=== PATIENT | female | born 1980 | race Caucasian/White ===

== ENCOUNTER → 2019-10-26 | Outpatient (CLI) | payer OTHER ==
[~2019-10-26] MED LIST: BARIUM for suspension 96% w/w (Vanilla Silq Medium Density) PO ONE; BARIUM for suspension 98% w/w (Vanilla Silq High Density) PO ONE
--- NOTE | 2019-10-26 11:49 | Diagnostic Imaging Report ---
INDICATION: Reflux. TECHNIQUE: Patient ingested effervescent crystals as well as thin and thick barium and imaging over the esophagus, stomach, and proximal small bowel was performed at multiple obliquities. 48 seconds of fluoroscopic time was utilized. FINDINGS: Preliminary radiograph is unremarkable. The esophagus has a smooth contour. No mass or stricture is identified. No hiatal hernia or gastroesophageal reflux was demonstrated. Stomach has normal configuration. Duodenal bulb is without deformity. IMPRESSION: Unremarkable upper GI. Dictated by: Dictated on workstation # [id number]
== END ==
LOC: RAD 09:29
PROVIDERS: ATTEND Surgery
DX: K21.9 Gastro-esophageal reflux disease without esophagitis (principal)
CPT/HCPCS: 74246

== ENCOUNTER 2020-02-15 09:31 | Outpatient (RCR) | payer OTHER ==
[~2020-02-15] VITALS: Ht 165 cm; Wt 123.0 kg
[~2020-02-15 09:31] MED LIST changes: +ATEN50TA PO; -BARIUM for suspension 96% w/w (Vanilla Silq Medium Density) PO ONE; -BARIUM for suspension 98% w/w (Vanilla Silq High Density) PO ONE; +BUPR300T98 PO; +CETI10TA21 PO; +FLUO20CA42 PO; +IBUP-1780 PO; +METF-761 PO
== END 2020-02-15 15:03 | disposition home or self-care (01) ==
LOC: PREOP 09:31
PROVIDERS: ATTEND Surgery
DX: Z01.818 Encounter for other preprocedural examination (principal); Z01.812 Encounter for preprocedural laboratory examination; E66.01 Morbid (severe) obesity due to excess calories
CPT/HCPCS: 87635

== ENCOUNTER 2020-02-18 08:45 | Day surgery (SDC) | payer OTHER ==
[~2020-02-18] VITALS: Ht 165 cm; Wt 123.0 kg
[2020-02-18] VITALS (10 sets, daily range): BP systolic 106–177; BP diastolic 64–95
--- OUTSIDE RECORDS SUMMARY | 2020-02-18 09:13 | XMS REPORT | Continuity of Care Document ---
Author Organization Unknown Address Unknown Phone Unavailable Allergies Active Description Code Type Severity Reaction Onset Reported/Identified Relationship to Patient Clinical Status Yes No Allergy Information Available [id number] Drug Allergy Unknown N/A 020 Yes No Known Drug Allergies [id number] Drug Allergy Unknown N/A 02/10/2020 Medications There is no data. Problems Date Dx Coded Attending Type Code Diagnosis Diagnosed By 08/29/1502 RICKEY PARKER MD, Ot E66.01 MORBID (SEVERE) OBESITY DUE TO EXCESS CA 08/29/1502 RICKEY PARKER MD Ot Z01.81 2 ENCOUNTER FOR PREPROCEDURAL LABORATORY E 08/29/1502 RICKEY PARKER MD Ot Z01.81 8 ENCOUNTER FOR OTHER PREPROCEDURAL EXAMIN 10/27/2019 RICKEY PARKER MD Ot K21.9 GASTRO-ESOPHAGEAL REFLUX DISEASE WITHOUT 11/27/2019 RICKEY PARKER MD, Ot K21.9 GASTRO-ESOPHAGEAL REFLUX DISEASE WITHOUT 11/27/2019 W E11.65 Typ e 2 diabetes mellitus with hyperglycemia Nathalie Guevara 11/27/2019 W I10 Essent ial (primary) hypertension Nathalie Guevara 01/01/2020 W F32.1 Sridevi r depressive disorder, single episode, moderate Alisa Andrew 01/01/2020 W F41.1 Gene ralized anxiety disorder Alisa Andrew 01/04/2020 W F32.1 Sridevi r depressive disorder, single episode, moderate Alisa Andrew 01/04/2020 W F41.1 Gene ralized anxiety disorder Alisa Andrew Procedures There is no data. Results Test Result Range Coronavirus SARS-CoV-2 SO 2018 - 0 14:15 Coronavirus Ab [Units/volume] in Serum Negative Negative Encounters ACCT No. Visit Date/Time Discharge Status Pt. Type Provider Facility Loc./Unit Complaint [id number] 08/25/2019 11:23:07 08/25/2019 23:59:5 9 CLS Outpatient [id number] 02/15/2020 09:31:00 020 15:03:00 DIS Outpatient RICKEY PARKER MD [facility] PREOP MORBID OBESITY [id number] 10/26/2019 09:29:00 020 23:59:59 CLS Outpatient RICKEY PARKER MD [facility] RAD REFLUX [id number] 02/18/2020 09:30:00 P EN Preadmit RICKEY PARKER MD [facility] [place] [facility] MORBID OBESITY
[2020-02-18] MEDS ORDERED: ONDANSETRON 4 MG/2 ML (SDV) Z0FRAN IV ONE (09:15)
[2020-02-18] MEDS ORDERED: FAMOTIDINE 20MG/2ML IV (PEPCID) IV ONE (09:15)
[2020-02-18] MEDS: LACTATED RINGERS 1,000 ML IV PRN ×2 (09:28→13:00)
[2020-02-18] MEDS ORDERED: ceFAZolin 2 GM IV Premixed 50 ML IV ONE (09:30)
[2020-02-18 09:37] LABS: BASOPHILS % (AUTO) 0 % (0-10); EOSINOPHILS % (AUTO) 0 % (0-10); HEMATOCRIT 37 % (35-52); HEMOGLOBIN 12.4 G/DL (11.5-16.0); LYMPHOCYTES # (AUTO) 1.8 X 10^3 (1.0-4.0); LYMPHOCYTES % (AUTO) 23 % (12-44); MEAN CORPUSCULAR HEMOGLOBIN 30 PG (25-34); MEAN CORPUSCULAR HGB CONC 34 G/DL (32-36); MEAN CORPUSCULAR VOLUME 89 FL (80-99); MONOCYTES # (AUTO) 0.4 X 10^3 (0.0-1.0); MONOCYTES % (AUTO) 5 % (0-12); NEUTROPHILS # (AUTO) 5.6 X 10^3 (1.8-7.8); NEUTROPHILS % (AUTO) 71 % (42-75); PLATELET COUNT 353 10^3/uL (130-400); RED CELL DISTRIBUTION WIDTH 13.1 % (10.0-14.5); WHITE BLOOD COUNT 7.9 10^3/uL (4.3-11.0)
--- NOTE | 2020-02-18 09:41 | Progress Note-Pre Operative ---
Pre-Operative Progress Note H&P Reviewed The H&P was reviewed, patient examined and no changes noted. Date Seen by Provider: February 18, 2020 Time Seen by Provider: 09:40 Date H&P Reviewed: February 18, 2020 Time H&P Reviewed: 09:35 Pre-Operative Diagnosis: Morbid obesity, HTN, DMII, LUIS MIGUEL DEMAR BLANDON APRN February 18, 2020 09:41
--- NOTE | 2020-02-18 09:42 | Discharge Inst-Surgical ---
D/C Lap Instructions-CIERAO Reconcile Patient Problems Problems Reviewed?: Yes New, Converted, or Re-Newed RX: Other Follow Up Appt in 2 weeks Activity as tolerated No driving for 24 hours No driving while on pain medications Incentive Spirometry use every 2 hours while awake Regular Diet Symptoms to Report: Fever over 101 degree F, Nausea/Vomiting Infection Signs and Symptoms to report: Increased redness, Foul odor of wound, Increased drainage Bathing instructions: May shower Operative Area Clean/Dry; Keep incision clean/dry If any problems/questions: Contact your physician or go to Emergency Room DEMAR BLANDON APRN February 18, 2020 09:42
[2020-02-18] MEDS ORDERED: CATHETER FLUSH 10 ML SYR IV PRN (09:45)
[2020-02-18] MEDS ORDERED: BUP/EPI 0.5% 1:200,000 (SENSORCAINE) 30 ML VIAL ONE (10:59)
[2020-02-18] MEDS ORDERED: ONDANSETRON 4 MG/2 ML (SDV) Z0FRAN ONE (11:37)
[2020-02-18] MEDS ORDERED: DEXAMETHASONE 10 MG/ML (DECADRON) 1 ML VIAL ONE (11:37)
[2020-02-18] MEDS ORDERED: proPOfol 200 MG/20 ML (DIPRIVAN) VIAL IV ONE (11:37)
[2020-02-18] MEDS ORDERED: SEVOFLURANE (ULTANE) 15 ML INHAL SOLN ONE ×2 (11:37→13:37)
[2020-02-18] MEDS ORDERED: fentaNYL INJECTION 100 MCG/2 ML AMP ONE ×2 (11:37→14:07)
[2020-02-18] MEDS ORDERED: ROCURONIUM 10 MG/ML 5 ML SYRINGE IV ONE (11:37)
[2020-02-18] MEDS ORDERED: MIDAZOLAM 2 MG/2 ML (VERSED) VIAL ONE (11:37)
[2020-02-18] MEDS ORDERED: NS IV 1000 ML 1,000 ML IV SCH (12:47)
[2020-02-18] MEDS ORDERED: diphenhydrAMINE 50 MG/ML INJ (BENADRYL) IVP PRN (13:00)
[2020-02-18] MEDS ORDERED: fentaNYL INJECTION 1,000 MCG in NS (IVPB) 80 ML IV SCH (13:00)
[2020-02-18] MEDS ORDERED: ONDANSETRON 4 MG/2 ML (SDV) Z0FRAN IV PRN (13:00)
[2020-02-18] MEDS ORDERED: oxyCODONE 5 MG/5 ML ORAL SOLN (roxiCODONE) 5 ML UDC PO PRN (13:00)
[2020-02-18] MEDS ORDERED: RT-ALBUTEROL SULF 2.5 MG/3 ML PRE-MIX VIAL INH SCH (13:00)
[2020-02-18] MEDS ORDERED: METOCLOPRAMIDE INJ 10 MG/2 ML (REGLAN) IV PRN (13:00)
[2020-02-18] MEDS ORDERED: NALOXONE 0.4 MG/ML 1 ML (NARCAN) VIAL IV PRN (13:00)
[2020-02-18] MEDS ORDERED: diphenhydrAMINE 50 MG/ML INJ (BENADRYL) IV PRN (13:00)
[2020-02-18] MEDS ORDERED: ATROPINE 1.2 MG/3 ML (0.4 MG/ML) SYR ONE (13:06)
[2020-02-18] MEDS ORDERED: NEOSTIGMINE 3 MG/3 ML VIAL ONE (13:27)
[2020-02-18] MEDS ORDERED: GLYCOPYRROLATE 0.2 MG/ML (ROBINUL) 2 ML VIAL ONE (13:27)
[2020-02-18] MEDS ORDERED: morphine INJ 10 MG/ML 1ML (SYR OR VIAL) ONE (13:54)
[2020-02-18] MEDS ORDERED: fentaNYL INJECTION 100 MCG/2 ML AMP IVP ONE ×2 (14:00)
[2020-02-18] MEDS ORDERED: morphine INJ 10 MG/ML 1ML (SYR OR VIAL) IVP ONE ×2 (14:00)
[2020-02-18] MEDS ORDERED: ONDANSETRON 4 MG/2 ML (SDV) Z0FRAN IVP PRN ×2 (14:00)
[2020-02-18] MEDS ORDERED: MEPERIDINE (DEMEROL) INJ 50 MG/ML IVP ONE ×2 (14:00)
--- NOTE | 2020-02-18 14:06 | Progress Note-Post Operative ---
Post-Operative Progess Note Surgeon (s)/Store Operations Specialist (s) Surgeon Dr. Armen Wilkes M.D. Store Operations Specialist: Roberto Blandon BUMP GRADER OPERATOR Pre-Operative Diagnosis Morbid obesity, HTN, DMII, LUIS MIGUEL Post-Operative Diagnosis Morbid obesity, HTN, DMII, LUIS MIGUEL Procedure & Operative Findings Date of Procedure 02/18/20 Procedure Performed/Findings Laparoscopic gastric sleeve resection Anesthesia Type GET Estimated Blood Loss Estimated blood loss (mL): minimal Specimens/Packing Specimens Removed 1) Stomach ROBERTO BLANDON BUMP GRADER OPERATOR February 18, 2020 14:06
--- NOTE | 2020-02-18 14:11 | Progress Note-Post Operative ---
Post-Operative Progess Note Surgeon (s)/Clarifier Operator (s) Surgeon RICKEY PARKER MD Clarifier Operator: Roberto Yeboah DIVING INSTRUCTOR Pre-Operative Diagnosis Morbid obesity, HTN, DMII, LUIS MIGUEL Post-Operative Diagnosis same Procedure & Operative Findings Date of Procedure 02/18/20 Procedure Performed/Findings laparoscopic gastric sleeve resection. Anesthesia Type get Estimated Blood Loss Estimated blood loss (mL): minimal Specimens/Packing Specimens Removed stomach RICKEY PARKER MD February 18, 2020 14:11
[2020-02-18] MEDS: LACTATED RINGERS 1,000 ML IV SCH ×3 (15:32→20:57)
[2020-02-18] MEDS: metroNIDAZOLE 500MG/100ML IVPB 100 ML IV SCH ×2 (16:08→23:15)
--- NOTE | 2020-02-18 16:14 | NUR ---
PALMA FAN admitted to room 422-1, post op gastric sleeve procedure, on 02/18/20 accompanied by staff .PALMA FAN introduced to surroundings, call light, bed controls, phone, TV, temperature control, lights, meal times, smoking policy, visitor policy, side rail policy, bathrooms and showers. Patient Rights given to patient in the handbook. PALMA FAN verbalizes understanding that [facility] is not responsible for the loss or damage to any personal effects or valuables that are kept in the patients posession during their hospitalization. The following Patient Care Plans and discharge were discussed with the patient. PALMA FAN verbalizes understanding of Interdisciplinary Patient Education. Patient was informed about the Rapid Response Team and its purpose.
--- NOTE | 2020-02-18 18:28 | OPERATIVE REPORT ---
DATE OF SERVICE: 02/18/2020 ATTENDING PRIMARY CARE PHYSICIAN: PREOPERATIVE DIAGNOSES: Morbid obesity, diabetes, hypertension, sleep apnea. POSTOPERATIVE DIAGNOSES: Morbid obesity, diabetes, hypertension, sleep apnea. PROCEDURE: Laparoscopic gastric sleeve resection. SURGEON: Rickey Parker MD ELECTRICIAN SUBSTATION: Roberto Yeboah APRN ANESTHESIA: General endotracheal. ESTIMATED BLOOD LOSS: Minimal. FINDINGS: Hepatomegaly, liver steatosis as well as early signs of liver cirrhosis. No hiatal hernia. DISPOSITION: The patient tolerated the procedure well. INDICATIONS: The patient is a 39-year-old female in our surgical weight loss program for the laparoscopic gastric sleeve resection and meets the medical criteria for bariatric surgery. She began to gain the majority of her adult weight 22 years ago after the of her first child. She has tried multiple diet and exercise attempts with no success. She has tried diet programs including , Weight Watchers, vegan diet, SlimFast, [place] Atkins, ketogenic, and has had some mild success over the years; however, would regain the weight back. She has also tried exercise regimens including walking. She would also do 5 km runs and has tried medications including phentermine and Topamax and would have some success; however, would regain the weight back. Her medical comorbidities related to her obesity include obstructive sleep apnea, hypertension, diabetes, anxiety, depression, gastroesophageal reflux disease, hypercholesterolemia. DESCRIPTION OF PROCEDURE: The patient was brought to the operating room and supine on the table. After adequate IV pain and sedative medications and general endotracheal intubation, the abdomen was prepped and draped in standard surgical fashion. A 0.5% Marcaine with epinephrine was used to anesthetize the overlying skin in left upper abdominal quadrant and transverse skin incision made using a 15 blade. An 0 silk suture was applied to the medial aspect of the incision for retraction and a Veress needle inserted with a low opening pressure of 0 mmHg and the abdomen was then insufflated to 15 mmHg pressure. The Veress needle removed and a 5 mm XL trocar placed followed by a 5 mm 45-degree angle laparoscope visualizing the peritoneal cavity. A 4-quadrant abdominal exploration was performed. There was liver steatosis, hepatomegaly as well as early cirrhotic changes. There was a surgically absent gallbladder. There was no hiatal hernia identified. Under direct visualization, we then proceeded to place a midabdominal left midline 10 mm port after the skin and peritoneal lining were anesthetized using 0.5% Marcaine with epinephrine and a transverse skin incision made using 15 blade. In a similar manner, a midabdominal right of midline 15 mm port was placed followed by a right upper abdominal quadrant 5 mm port. The epigastric region was then anesthetized and a transverse skin incision made using 11 blade. A tract was then created through the abdominal wall layers using a trocar to a 5 mm port and through this opening, a medium size Nathansen liver retractor was placed and the left lobe of the liver retracted anteriorly and superiorly. The patient was then placed in steep reverse Trendelenburg position. We then measured the stomach from the pylorus, cephalad along the greater curvature and marked this with a marking pen. The gastrocolic ligament next to the stomach was then opened using a Sonicision entering the lesser sac. We then proceeded with inferior dissection until we were approximately 2 cm below our marking. We then proceeded cephalad taking the short gastric vessels as well as angle of His connective tissue fibers as well as the posterior stomach behind this identifying the left ranulfo of the diaphragm. Good hemostasis was observed. The ViSiGi 36-Bulgarian gastric tube was then placed into the stomach and then directed into the pylorus. This was then placed on suction and used as a stapled guide for gastric sleeve resection. We first started with a 45 polyglycolic acid black load followed by a 60 mm black load followed by two 60 mm purple loads and a 45 mm purple load to finish our gastric sleeve resection leaving 2 cm next to the gastroesophageal junction with visualization of good hemostasis. The staple line corners were then clipped with 5 mm clips. A leak test was then performed to 30 mmHg pressure with no leak identified. Tisseel fibrin glue was then placed into the staple line and the omentum placed on the staple line. The stomach was removed through the 15 mm port site and the fascia and peritoneum to the 10 to 15 mm port sites were then closed under direct visualization using a Nasir-Rosanna device and 0 Vicryl suture. The abdomen was desufflated and remaining ports removed. All skin incisions were closed using 4-0 Monocryl running subcuticular sutures. Wounds were then cleaned and covered with Dermabond. The patient tolerated the procedure well. We will admit her 23-hour observation, start with pain control with a SWEEP PRESS OPERATOR pump with fentanyl and DVT prophylaxis with early ambulation, calf SCDs as well as Lovenox injections. We will also continue antibiotics for 24 hours and start a phase 1 clear liquid diet in the morning and when she is tolerating 60 mL every half hour, has adequate pain control with oral pain medication and is ambulating well, we will discharge her home. She will be instructed to follow a phase 1 clear liquid diet for the next 2 weeks. Job ID: [id number] DocumentID: [id number] Dictated Date: 02/18/2020 13:45:09 Project Manager/Design Manager Date: 02/18/2020 18:27:32 Dictated By: RICKEY PARKER MD
[2020-02-18] MEDS: RT-ALBUTEROL SULF 2.5 MG/3 ML PRE-MIX VIAL INH SCH ×2 (18:42→22:14)
[2020-02-18] MEDS: ceFAZolin 2 GM IV Premixed 50 ML IV SCH (20:57)
[2020-02-18] MEDS: ENOXAPARIN 40 MG/0.4 ML (LOVENOX) SYR SC SCH (20:57)
[2020-02-19] VITALS: BP 14/84
[2020-02-19] MEDS ORDERED: ONDANSETRON 4 MG/2 ML (SDV) Z0FRAN ONE ×2 (00:44→06:16)
[2020-02-19] MEDS: ONDANSETRON 4 MG/2 ML (SDV) Z0FRAN IVP PRN ×3 (00:53→12:34)
[2020-02-19 04:00] VITALS: BP 150/84
[2020-02-19] MEDS: ceFAZolin 2 GM IV Premixed 50 ML IV SCH ×2 (04:16→12:35)
[2020-02-19] MEDS: LACTATED RINGERS 1,000 ML IV SCH (05:23)
[2020-02-19] MEDS: metroNIDAZOLE 500MG/100ML IVPB 100 ML IV SCH (06:32)
[2020-02-19 07:00] LABS: HEMOGLOBIN 13.1 G/DL (11.5-16.0); MEAN PLATELET VOLUME 11.3 FL (7.4-10.4); RED CELL DISTRIBUTION WIDTH 13.3 % (10.0-14.5); WHITE BLOOD COUNT 14.2 10^3/uL (4.3-11.0)
[2020-02-19] MEDS: RT-ALBUTEROL SULF 2.5 MG/3 ML PRE-MIX VIAL INH SCH ×3 (07:00→14:45)
[2020-02-19 07:19] LABS: CHLORIDE 99 MMOL/L (98-107); POTASSIUM 3.7 MMOL/L (3.6-5.0)
[2020-02-19 07:20] LABS: SODIUM 136 MMOL/L (135-145)
[2020-02-19 07:21] LABS: CALCIUM 9.4 MG/DL (8.5-10.1); GLUCOSE 113 MG/DL (70-105)
[2020-02-19 07:23] LABS: CARBON DIOXIDE 24 MMOL/L (21-32)
[2020-02-19 07:25] LABS: CREATININE SERUM 0.75 MG/DL (0.60-1.30); GFR ESTIMATED > 60
[2020-02-19 07:26] LABS: BUN/CREATININE RATIO 9
[2020-02-19] MEDS: ENOXAPARIN 40 MG/0.4 ML (LOVENOX) SYR SC SCH (08:05)
[2020-02-19 08:15] VITALS: BP 139/78
[2020-02-19] MEDS ORDERED: PANTOPRAZOLE 40 MG (PROTONIX) VIAL IV SCH (09:00)
[2020-02-19] MEDS ORDERED: SENNA W/DOCUSATE (SENOKOT S) TABLET PO SCH (09:00)
--- NOTE | 2020-02-19 10:12 | Progress Note ---
Subjective Date Seen by a Provider: February 19, 2020 Time Seen by a Provider: 10:00 Subjective/Events-last exam doing ok. slowly tolerating phase 1 clears. pain controlled. no fever/chills. no SOB. Objective Exam Vital Signs Date Time Temp Pulse Resp B/P (MAP) Pulse Ox O2 Delivery O2 Flow Rate FiO2 02/19/20 08:45 Room Air 02/19/20 08:15 35.9 64 16 139/78 (98) 96 Nasal Cannula 3.00 02/19/20 07:00 95 Room Air 02/19/20 07:00 14 02/19/20 04:00 37.3 86 21 150/84 (106) 95 Nasal Cannula 3.00 02/19/20 03:03 96 Nasal Cannula 3.00 02/19/20 00:00 36.0 85 20 14/84 (61) 97 Nasal Cannula 3.00 02/18/20 21:00 Nasal Cannula 3.00 02/18/20 21:00 16 02/18/20 19:39 35.8 63 16 162/90 (114) 96 Nasal Cannula 3.00 02/18/20 18:42 97 Nasal Cannula 3.00 02/18/20 15:00 36.3 75 18 166/95 (118) 95 Venturi Mask 3.00 02/18/20 15:00 Nasal Cannula 3.00 02/18/20 14:45 36.6 23 177/90 (119) 95 OxyMask 3 02/18/20 14:45 OxyMask 3 02/18/20 14:40 25 174/91 (118) 95 OxyMask 3 02/18/20 14:30 22 174/93 (120) 95 OxyMask 3 02/18/20 14:30 3 02/18/20 14:20 24 166/88 (114) 97 OxyMask 6 02/18/20 14:15 12 02/18/20 14:10 23 154/77 (102) 98 OxyMask 12 02/18/20 14:00 12 02/18/20 14:00 27 106/89 (95) 89 OxyMask 10 02/18/20 13:54 12 02/18/20 13:54 36.6 16 142/81 (101) 93 OxyMask 12 I & O 02/19/20 07:00 Intake Total 1050 ml Output Total 3025 ml Balance -1975 ml Capillary Refill : Less Than 3 SecondsLess Than 3 Seconds General Appearance: No Apparent Distress HEENT: PERRL/EOMI Neck: Full Range of Motion Respiratory: Chest Non Tender, Lungs Clear, Decreased Breath Sounds Cardiovascular: Regular Rate, Rhythm Gastrointestinal: normal bowel sounds, soft, tenderness Extremity: Normal Capillary Refill Neurologic/Psychiatric: Alert, Oriented x3 Skin: Normal Color Lymphatic: No Adenopathy Results Lab Laboratory Tests 02/18/20 12:34: Glucometer 105 02/18/20 16:21: Glucometer 163H 02/18/20 19:22: Glucometer 163H 02/19/20 00:41: Glucometer 147H 02/19/20 05:08: Glucometer 139H 02/19/20 06:21: White Blood Count 14.2H, Red Blood Count 4.38, Hemoglobin 13.1, Hematocrit 39, Mean Corpuscular Volume 89, Mean Corpuscular Hemoglobin 30, Mean Corpuscular Hemoglobin Concent 34, Red Cell Distribution Width 13.3, Platelet Count 404H, Mean Platelet Volume 11.3H, Sodium Level 136, Potassium Level 3.7, Chloride Level 99, Carbon Dioxide Level 24, Anion Gap 13, Blood Urea Nitrogen 7, Creatinine 0.75, Estimat Glomerular Filtration Rate > 60, BUN/Creatinine Ratio 9, Glucose Level 113H, Calcium Level 9.4 02/19/20 08:57: Glucometer 111H Microbiology 02/18/20 MRSA Screen - Final, Complete MRSA not isolated Assessment/Plan Assessment/Plan Assess & Plan/Chief Complaint s/p lap sleeve gastrectomy. increase ambulation. encourage phase 1 clear liquid diet. when tolerating 60ml/30min clears, good pain control and ambulating well will d/c home. Clinical Quality Measures DVT/VTE Risk/Contraindication: Risk Factor Score Per Nursin RFS Level Per Nursing on Admit: 4+=Very High RICKEY PARKER MD February 19, 2020 10:12
[2020-02-19 12:01] VITALS: BP 148/81
[2020-02-19] MEDS ORDERED: METOCLOPRAMIDE INJ 10 MG/2 ML (REGLAN) IVP PRN (13:00)
--- NOTE | 2020-02-19 13:02 | Anesthesia-General Post-Op ---
General Patient Condition Mental Status/LOC: Same as Preop Cardiovascular: Satisfactory Nausea/Vomiting: Absent Respiratory: Satisfactory Pain: Controlled Complications: Absent Post Op Complications Complications None Follow Up Care/Instructions Patient Instructions None needed. Anesthesia/Patient Condition Patient Condition Patient is doing well, no complaints, stable vital signs, no apparent adverse anesthesia problems. No complications reported per nursing. ANGELICA MARIN CRNA February 19, 2020 13:02
== END 2020-02-19 16:03 | disposition home or self-care (01) ==
LOC: SDC 08:45 → 4TH 14:56 → SDC 02-19 16:03
PROVIDERS: ATTEND Surgery
DX: E66.01 Morbid (severe) obesity due to excess calories (principal); E11.9 Type 2 diabetes mellitus without complications; I10 Essential (primary) hypertension; K21.9 Gastro-esophageal reflux disease without esophagitis; E78.00 Pure hypercholesterolemia, unspecified; G47.33 Obstructive sleep apnea (adult) (pediatric); J30.9 Allergic rhinitis, unspecified; F32.9 Major depressive disorder, single episode, unspecified; F41.9 Anxiety disorder, unspecified; Z68.42 Body mass index [BMI] 45.0-49.9, adult; Z79.84 Long term (current) use of oral hypoglycemic drugs; Z79.899 Other long term (current) drug therapy; Z99.89 Dependence on other enabling machines and devices; Z90.89 Acquired absence of other organs; Z90.49 Acquired absence of other specified parts of digestive tract; Z80.0 Family history of malignant neoplasm of digestive organs
CPT/HCPCS: 36415; 80048; 82962; 84703; 85025; 85027; 87081; 94640; 94664; 94760

== ENCOUNTER → 2021-02-22 | Outpatient (CLI) | payer OTHER ==
[~2021-02-22] MED LIST changes: -CETI10TA21 PO; +CETI10TA49 PO; -METF-761 PO; +METF-846 PO
== END ==
LOC: LAB 12:20
PROVIDERS: ATTEND Nurse Practitioner Family
DX: E11.9 Type 2 diabetes mellitus without complications (principal)
CPT/HCPCS: 36415; 83036

== ENCOUNTER 2022-05-17 02:25 | Emergency (ER) | payer OTHER ==
[~2022-05-17] VITALS: Ht 165.1 cm; Wt 104.5 kg
--- NOTE | 2022-05-17 03:08 | ED Abdominal Pain ---
General Chief Complaint: Abdominal/GI Problems Stated Complaint: LOWER ABD PAIN Nursing Triage Note: PT ARRIVAL TO ER WITH COMPLAINT OF ABDOMINAL PAIN X24 HOURS. PAIN IS DESCRIBED SHARP CRAMPING LIKE PAIN. PAIN RATED AT 7/10. PT DENIES ANYTHING MAKING IT BETTER OR WORSE. PT STATES THAT SHE HASN'T HAD A BM SINCE SATURDAY. Source of Information: Patient Exam Limitations: No Limitations (RASHMI CASTILLO) History of Present Illness Date Seen by Provider: May 17, 2022 Time Seen by Provider: 02:43 Initial Comments Patient to the ER by private conveyance from home with chief complaint of 1 day of pain from her umbilicus down to her suprapubic region. This pain woke her from sleep at 3 in the morning. She had 1 episode of diarrhea on Saturday, 4 days ago. She is having nausea but no vomiting. No fevers but she has had some chills. No known sick contacts. She has had a 2 ablations for endometriosis and 2 C-sections with tubal ligation, cholecystectomy, gastric sleeve 2 years ago but no endoscopy. Last bowel movement was 4 to 5 days ago Saturday or . She typically has a bowel movement every day or 2. Parents with history of diverticulitis, diabetes and neuropathy. (RASHMI CASTILLO) Allergies and Home Medications Allergies Coded Allergies: No Known Drug Allergies (Unverified , 02/10/20) Patient Home Medication List Home Medication List Reviewed: Yes (RASHMI CASTILLO) Atenolol (Atenolol) 50 Mg Tablet, 50 MG PO DAILY, (Reported) Entered as Reported by: VALERIE WOLF on 02/10/20 1147 Bupropion HCl (Bupropion Xl) 300 Mg Tab.er.24h, 300 MG PO DAILY, (Reported) Entered as Reported by: VALERIE WOLF on 02/10/20 1147 Cetirizine HCl (Zyrtec) 10 Mg Tablet, 10 MG PO DAILY, (Reported) Entered as Reported by: VALERIE WOLF on 02/10/20 1147 Fluoxetine HCl (Prozac) 20 Mg Capsule, 20 MG PO BID, (Reported) Entered as Reported by: VALERIE WOLF on 02/10/20 114 Ibuprofen (Ibuprofen) 800 Mg Tablet, 800 MG PO DAILY, (Reported) Entered as Reported by: VALERIE WOLF on 02/10/20 1147 Review of Systems Review of Systems Constitutional: No chills, No diaphoresis, No fever, No malaise EENTM: No Blurred Vision, No Double Vision Respiratory: Denies Cough, Denies Shortness of Air, Denies SOA at Rest Cardiovascular: Denies Chest Pain, Denies Lightheadedness Gastrointestinal: See HPI, Abdominal Pain, Constipated; Denies Diarrhea; Nausea; Denies Poor Fluid Intake, Denies Vomiting Genitourinary: Denies Burning, Denies Discharge Musculoskeletal: No back pain, No joint pain Skin: No pruritus, No rash Psychiatric/Neurological: Denies Headache, Denies Numbness (RASHMI CASTILLO) All Other Systems Reviewed Negative Unless Noted: Yes (RASHMI CASTILLO) Past Nqhhegd-Nmvmam-Sunhlw Hx Patient Social History Tobacco Use?: No Use of E-Cig and/or Vaping dev: No Substance use?: No Alcohol Use?: No Pt feels they are or have been: No (RASHMI CASTILLO) Immunizations Up To Date Influenza Vaccine Up-to-Date: Yes; Up-to-Date Second COVID19 Vaccination Reginaldo: UNKNOWN DATE (RASHMI CASTILLO) Seasonal Allergies Seasonal Allergies: Yes (RASHMI CASTILLO) Past Medical History Surgeries: Yes (CS X2, BACK X2, EAR SURGERY, D&C/ABLATION X2) Section, Gallbladder, Tubal Ligation Respiratory: No Currently Using CPAP: Yes Currently Using BIPAP: No Cardiac: Yes Hypertension Neurological: Yes Headaches /Migraines Female 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 Sexually Transmitted Disease: No HIV/AIDS: No Genitourinary: No Gastrointestinal: No Musculoskeletal: No Endocrine: Yes Diabetes, Non-Insulin dep HEENT: Yes (GLASSES) Loss of Vision: Denies Hearing Impairment: Denies Cancer: No Psychosocial: Yes Anxiety, Depression Integumentary: No Blood Disorders: No Adverse Reaction/Blood Tranf: No (N/A) (RASHMI CASTILLO) Physical Exam Vital Signs Vital Signs - First Documented 05/17/22 02:44 Temp 36.9 Pulse 70 Resp 18 B/P (MAP) 154/88 (110) Pulse Ox 97 O2 Delivery Room Air (CECY SUBRAMANIAN DO) Vital Signs Capillary Refill : Less Than 3 Seconds (RASHMI CASTILLO) Height/Weight/BMI Height: '" Weight: lbs. oz. kg; 38.00 BMI Method: General Appearance: WD/WN, mild distress HEENT: PERRL/EOMI, normal ENT inspection, pharynx normal Neck: full range of motion, supple, normal inspection Respiratory: lungs clear, normal breath sounds, no respiratory distress, no accessory muscle use Cardiovascular: normal peripheral pulses, regular rate, rhythm Peripheral Pulses: 2+ Radial Pulses (R), 2+ Radial Pulses (L) Gastrointestinal: normal bowel sounds, non tender, soft, no organomegaly Extremities: normal range of motion, normal inspection, normal capillary refill Neurologic/Psychiatric: alert, normal mood/affect, oriented x 3 Skin: normal color, warm/dry (RASHMI CASTILLO) Progress/Results/Core Measures Results/Orders Lab Results Laboratory Tests Test 05/17/22 02:56 05/17/22 03:25 Range/Units White Blood Count 11.5 H 4.3-11.0 10^3/uL Red Blood Count 4.20 3.80-5.11 10^6/uL Hemoglobin 13.0 11.5-16.0 g/dL Hematocrit 38 35-52 % Mean Corpuscular Volume 90 80-99 fL Mean Corpuscular Hemoglobin 31 25-34 pg Mean Corpuscular Hemoglobin Concent 35 32-36 g/dL Red Cell Distribution Width 12.0 10.0-14.5 % Platelet Count 376 130-400 10^3/uL Mean Platelet Volume 11.0 9.0-12.2 fL Immature Granulocyte % (Auto) 0 % Neutrophils (%) (Auto) 73 42-75 % Lymphocytes (%) (Auto) 21 12-44 % Monocytes (%) (Auto) 4 0-12 % Eosinophils (%) (Auto) 1 0-10 % Basophils (%) (Auto) 1 0-10 % Neutrophils # (Auto) 8.4 H 1.8-7.8 10^3/uL Lymphocytes # (Auto) 2.4 1.0-4.0 10^3/uL Monocytes # (Auto) 0.5 0.0-1.0 10^3/uL Eosinophils # (Auto) 0.1 0.0-0.3 10^3/uL Basophils # (Auto) 0.1 0.0-0.1 10^3/uL Immature Granulocyte # (Auto) 0.0 0.0-0.1 10^3/uL Sodium Level 139 135-145 MMOL/L Potassium Level 4.0 3.6-5.0 MMOL/L Chloride Level 106 98-107 MMOL/L Carbon Dioxide Level 22 21-32 MMOL/L Anion Gap 11 5-14 MMOL/L Blood Urea Nitrogen 14 7-18 MG/DL Creatinine 0.70 0.60-1.30 MG/DL Estimat Glomerular Filtration Rate 110 BUN/Creatinine Ratio 20 Glucose Level 110 H 70-105 MG/DL Calcium Level 9.2 8.5-10.1 MG/DL Corrected Calcium 9.3 8.5-10.1 MG/DL Total Bilirubin 0.4 0.1-1.0 MG/DL Aspartate Amino Transf (AST/SGOT) 18 5-34 U/L Alanine Aminotransferase (ALT/SGPT) 25 0-55 U/L Alkaline Phosphatase 69 40-136 U/L C-Reactive Protein High Sensitivity 0.34 0.00-0.50 MG/DL Total Protein 7.2 6.4-8.2 GM/DL Albumin 3.9 3.2-4.5 GM/DL Lipase 19 8-78 U/L Urine Color YELLOW Urine Clarity CLEAR Urine pH 6.0 5-9 Urine Specific [place] 1.020 1.016-1.022 Urine Protein NEGATIVE NEGATIVE Urine Glucose (UA) NEGATIVE NEGATIVE Urine Ketones NEGATIVE NEGATIVE Urine Nitrite NEGATIVE NEGATIVE Urine Bilirubin NEGATIVE NEGATIVE Urine Urobilinogen 0.2 < = 1.0 MG/DL Urine Leukocyte Esterase NEGATIVE NEGATIVE Urine RBC (Auto) NEGATIVE NEGATIVE Urine RBC NONE /HPF Urine WBC NONE /HPF Urine Squamous Epithelial Cells 0-2 /HPF Urine Crystals NONE /LPF Urine Bacteria TRACE /HPF Urine Casts NONE /LPF Urine Mucus NEGATIVE /LPF Urine Culture Indicated NO Serum Test, Qualitative NEGATIVE NEGATIVE (CECY SUBRAMANIAN DO) My Orders Orders - CECY SUBRAMANIAN DO Us Non Ob Pelvis Comp/Transvag (05/17/22 06:27) (CECY SUBRAMANIAN DO) Medications Given in ED Current Medications Medications Dose Ordered Sig/Linda Route Start Time Stop Time Status Last Admin Dose Admin Diatrizoate Meglum/ Diatrizoate Sod 120 ml ONCE ONCE PO 05/17/22 04:00 05/17/22 04:01 DC 05/17/22 04:00 30 ML Iohexol 100 ml ONCE ONCE IV 05/17/22 05:45 05/17/22 05:46 DC 05/17/22 05:50 100 ML Ketorolac Tromethamine 30 mg ONCE ONCE IVP 05/17/22 03:30 05/17/22 03:31 DC 05/17/22 03:34 30 MG Lactated Ringer's 1,000 ml @ 0 mls/hr Q0M ONCE IV 05/17/22 03:30 05/17/22 03:31 DC 05/17/22 04:46 999 MLS/HR Ondansetron HCl 4 mg ONCE ONCE IVP 05/17/22 03:30 05/17/22 03:31 DC 05/17/22 03:34 4 MG Pantoprazole 40 mg ONCE ONCE IV 05/17/22 03:30 05/17/22 03:31 DC 05/17/22 03:34 40 MG Sodium Chloride 10 ml NEEDED PRN IV 05/17/22 05:45 05/17/22 05:50 10 ML Sodium Chloride 100 ml ONCE ONCE IV 05/17/22 05:45 05/17/22 05:46 DC 05/17/22 05:50 80 ML (CECY SUBRAMANIAN DO) Vital Signs/I&O 05/17/22 02:44 Temp 36.9 Pulse 70 Resp 18 B/P (MAP) 154/88 (110) Pulse Ox 97 O2 Delivery Room Air (CECY SUBRAMANIAN DO) Blood Pressure Mean: 110 Progress Progress Note #1: Time: 03:23 Progress Note Liter ofToradol and Zofran for her symptoms. We will do some oral and IV contrast CT to look for obstipation versus obstruction. She has had plenty of surgeries as well as a history endometriosis so adhesions or internal hernia are possibilities. Give her some Protonix and Zofran. Fluids. Check labs including a lipase. Progress Note #2: Time: 04:15 Progress Note The patient's pain is gone. She has a few occasional cramps. She was able to drink most of her solution and will be going for a CT to rule out obstruction. (RASHMI CASTILLO) Diagnostic Imaging Diagonstic Imaging: CT Plain Films/CT/US/NM/MRI: abdomen, pelvis Comments [facility], [place] NAME: PALMA FAN REC#: [id number] PT STATUS: DEP ER : 1980 PHYSICIAN: RASHMI CASTILLO MD ADMIT DATE: 05/17/22/ER Signed Date of Exam:05/17/22 CT ABDOMEN/PELVIS W PROCEDURE: CT abdomen and pelvis with contrast. TECHNIQUE: Multiple contiguous axial images were obtained through the abdomen and pelvis after administration of intravenous contrast. Auto Exposure Controls were utilized during the CT exam to meet ALARA standards for radiation dose reduction. All CT scans use one or more of the following dose optimizing techniques: automated exposure control, MA and/or KvP adjustment based on patient size and exam type or iterative reconstruction. INDICATION: Lower abdominal pain. Obstipation. COMPARISON: None. FINDINGS: A 0.5 cm solid pulmonary nodule in the right lung base. Cholecystectomy. Gastric sleeve surgery. Benign fat containing adrenal myelolipoma. Indeterminant peripherally enhancing low-attenuation mass or fluid collection in the lower uterine segment and cervix measuring approximately 4.2 x 2.2 cm. The liver, pancreas, spleen, adrenals, kidneys, collecting systems, bladder and appendix are negative. No free intraperitoneal air or fluid. No lymphadenopathy. No evidence of bowel obstruction. No acute osseous findings. IMPRESSION: 1. No acute CT findings in the abdomen or pelvis. 2. Indeterminate peripherally enhancing low-attenuation mass or fluid collection involving the lower uterine segment and cervix. Recommend further evaluation with direct visualization and pelvic ultrasound. 3. A 0.5 cm solid pulmonary nodule in the right lung base. Fleischner criteria would recommend a follow-up chest CT in 12 months if the patient is high-risk for lung cancer. Dictated by: Dictated on workstation # [id number] Dict: 05/17/22613 Trans: 05/17/22820 [facility] [id number] Interpreted by: ADDIE CORREA MD Electronically signed by: ADDIE CORREA MD 05/17/22820 Reviewed: Reviewed by Pr Diagonstic Imaging: Ultrasound Plain Films/CT/US/NM/MRI: pelvis Comments [facility] [place] [place] NAME: PALMA FAN [facility] REC#: [id number] PT STATUS: DEP ER : 1980 PHYSICIAN: CECY SUBRAMANIAN DO ADMIT DATE: 05/17/22/ER Draft Date of Exam:05/17/22 US NON OB PELVIS COMP/TRANSVAG PROCEDURE: Pelvic comp/transvaginal sonogram. TECHNIQUE: Complete transabdominal and transvaginal pelvic ultrasound was performed. In addition, limited pelvic Doppler was performed. INDICATION: Lower abdominal pain. CT from earlier the same day demonstrates a questionable mass versus fluid collection in the lower uterine segment. The study is performed for further evaluation. Correlation is made with CT study earlier the same day. The uterus is anteverted measuring 7.7 x 4.6 x 5.5 cm. There is an area of marked parenchymal heterogeneity involving the uterus in the lower uterine segment measuring 4.1 x 2.1 x 2.8 cm. This appears to be in the anterior portion of lower uterine segment and does show some internal vascularity. A uterine mass cannot be excluded. This correlates to the abnormality noted on CT. This does partially obscure the endometrium which measures approximately 7 mm in thickness. Right ovary measures 2.3 x 2.0 x 1.6 cm and left ovary measures 2.6 x 1.9 x 1.8 cm. Both ovaries demonstrate blood flow. No free fluid is identified. IMPRESSION: Abnormal region of parenchymal heterogeneity with mixed solid and cystic components and internal vascularity in the lower uterine segment anteriorly, correlating with the CT abnormality. A uterine mass cannot be excluded. No other significant abnormality is seen. Dictated on workstation # [id number] Dict: 05/17/22819 Trans: 05/17/22 0827 ADDY [id number] Interpreted by: YOUNG ALONZO MD Electronically signed by: Reviewed: Reviewed by Me (RASHMI CASTILLO) Transfer of Care Time: 06:00 Care transferred to: Dr. Holland (RASHMI CASTILLO) Departure Communication (Admissions) 0630: Assumed care of the patient at shift change. CT results have returned that show an indeterminate pulmonary nodule which is likely incidental. Also has a lower uterine, cervical mass versus fluid collection. I spoke to her and at this time she is completely pain-free. She does have a history of endometriosis and endometriomas and has not been told she had one in her uterus, cervix. We will go ahead and get an ultrasound to further evaluate. She does have reliable gynecologic follow-up in [facility]. Pending ultrasound results at this time 0750: Patient remains pain-free at this time on reevaluation. Ultrasound shows partial solid partial cystic mass in the lower uterine segment. He does have some vascularity. Incidentally she does have a lung nodule which I did notify the patient of as well and recommended 1 year follow-up as per radiology. She does have reliable gynecology follow-up however have given her our meter supervisor on-call as well. I have notified her about the findings and that we did not find any obvious emergent condition at this time. That coupled with the fact that she is pain-free at this time I believe she is stable for discharge home with outpatient follow-up. She is comfortable with this plan of care. Questions were sought and answered she is discharged in stable condition. (CECY SUBRAMANIAN DO) Impression Primary Impression: Uterine mass Additional Impressions: Abdominal pain Qualified Codes: R10.30 - Lower abdominal pain, unspecified Lung nodule Disposition: HOME, SELF-CARE Condition: Stable Departure-Patient Inst. Referrals: LISA DIA MD (PCP) Primary Care Physician BLAS TURCIOS (Family) Primary Care Physician DEMETRIUS ELAINE DO Patient Instructions: Abdominal Pain, Adult ED Add. Discharge Instructions: You were seen in the emergency department today for abdominal pain. There is no obvious emergent cause for your abdominal pain however we did find a uterine mass. It is unclear what exactly this is at this time however I do recommend you follow-up with gynecology. You can follow-up with your current meter supervisor or the number for our meter supervisor on-call has been provided and you can call to schedule a follow-up appointment. You do have an incidentally found lung nodule which needs a follow-up imaging study in about 1 year. Please follow-up with your primary doctor for further evaluation of this. Return to the emergency department immediately if you develop any severe abdominal pain or if your symptoms change in any way concerning to you. All discharge instructions reviewed with patient and/or family. Voiced understanding. RASHMI CASTILLO May 17, 2022 03:08 CECY SUBRAMANIAN DO May 17, 2022 06:34
[2022-05-17 03:14] LABS: BASOPHILS # (AUTO) 0.1 10^3/uL (0.0-0.1); BASOPHILS % (AUTO) 1 % (0-10); EOSINOPHILS # (AUTO) 0.1 10^3/uL (0.0-0.3); EOSINOPHILS % (AUTO) 1 % (0-10); HEMATOCRIT 38 % (35-52); LYMPHOCYTES # (AUTO) 2.4 10^3/uL (1.0-4.0); LYMPHOCYTES % (AUTO) 21 % (12-44); MEAN CORPUSCULAR HEMOGLOBIN 31 pg (25-34); MEAN CORPUSCULAR HGB CONC 35 g/dL (32-36); MEAN CORPUSCULAR VOLUME 90 fL (80-99); MONOCYTES # (AUTO) 0.5 10^3/uL (0.0-1.0); MONOCYTES % (AUTO) 4 % (0-12); NEUTROPHILS # (AUTO) 8.4 10^3/uL (1.8-7.8); NEUTROPHILS % (AUTO) 73 % (42-75); PLATELET COUNT 376 10^3/uL (130-400); WHITE BLOOD COUNT 11.5 10^3/uL (4.3-11.0)
[2022-05-17] MEDS ORDERED: NS IV 1000 ML 1,000 ML IV SCH (03:15)
[2022-05-17 03:19] LABS: ALBUMIN 3.9 GM/DL (3.2-4.5)
[2022-05-17 03:21] LABS: CALCIUM 9.2 MG/DL (8.5-10.1)
[2022-05-17 03:22] LABS: TOTAL PROTEIN 7.2 GM/DL (6.4-8.2)
[2022-05-17 03:24] LABS: BILIRUBIN,TOTAL 0.4 MG/DL (0.1-1.0)
[2022-05-17 03:26] LABS: CREATININE SERUM 0.7 MG/DL (0.60-1.30)
[2022-05-17] MEDS ORDERED: PANTOPRAZOLE 40 MG (PROTONIX) VIAL IV ONE (03:30)
[2022-05-17] MEDS ORDERED: KETOROLAC 30 MG/ML VIAL IVP ONE (03:30)
[2022-05-17] MEDS ORDERED: ONDANSETRON 4 MG/2 ML (SDV) Z0FRAN IVP ONE (03:30)
[2022-05-17] MEDS ORDERED: LACTATED RINGERS 1,000 ML IV ONE (03:30)
[2022-05-17 03:31] LABS: BILIRUBIN,URINE NEGATIVE (NEGATIVE); CLARITY,URINE CLEAR; COLOR,URINE YELLOW; GLUCOSE, URINE (UA) NEGATIVE (NEGATIVE); KETONES,URINE NEGATIVE (NEGATIVE); LEUKOCYTE ESTERASE ,URINE NEGATIVE (NEGATIVE); NITRITE,URINE NEGATIVE (NEGATIVE); PROTEIN,URINE NEGATIVE (NEGATIVE)
[2022-05-17 03:37] LABS: BACTERIA,URINE TRACE /HPF; SQUAMOUS EPITHELIAL CELL,UR 0-2 /HPF
[2022-05-17] MEDS ORDERED: DIATRIZOATE MEGLUM/SODIUM 37% 120 ML (GASTROGRAFIN) PO ONE (04:00)
[2022-05-17] MEDS ORDERED: CATHETER FLUSH 10 ML SYR IV PRN (05:45)
[2022-05-17] MEDS ORDERED: IOHEXOL 350 MG/ML 100 ML (OMNIPAQUE 350) VIAL IV ONE (05:45)
[2022-05-17] MEDS ORDERED: NS 100 ML (IVPB) BAG IV ONE (05:45)
--- NOTE | 2022-05-17 06:22 | Diagnostic Imaging Report ---
PROCEDURE: CT abdomen and pelvis with contrast. TECHNIQUE: Multiple contiguous axial images were obtained through the abdomen and pelvis after administration of intravenous contrast. Auto Exposure Controls were utilized during the CT exam to meet ALARA standards for radiation dose reduction. All CT scans use one or more of the following dose optimizing techniques: automated exposure control, MA and/or KvP adjustment based on patient size and exam type or iterative reconstruction. INDICATION: Lower abdominal pain. Obstipation. COMPARISON: None. FINDINGS: A 0.5 cm solid pulmonary nodule in the right lung base. Cholecystectomy. Gastric sleeve surgery. Benign fat containing adrenal myelolipoma. Indeterminant peripherally enhancing low-attenuation mass or fluid collection in the lower uterine segment and cervix measuring approximately 4.2 x 2.2 cm. The liver, pancreas, spleen, adrenals, kidneys, collecting systems, bladder and appendix are negative. No free intraperitoneal air or fluid. No lymphadenopathy. No evidence of bowel obstruction. No acute osseous findings. IMPRESSION: 1. No acute CT findings in the abdomen or pelvis. 2. Indeterminate peripherally enhancing low-attenuation mass or fluid collection involving the lower uterine segment and cervix. Recommend further evaluation with direct visualization and pelvic ultrasound. 3. A 0.5 cm solid pulmonary nodule in the right lung base. Fleischner criteria would recommend a follow-up chest CT in 12 months if the patient is high-risk for lung cancer. Dictated by: Dictated on workstation # [id number]
[2022-05-17 07:54] VITALS: BP 140/75
--- NOTE | 2022-05-17 08:28 | Diagnostic Imaging Report ---
PROCEDURE: Pelvic comp/transvaginal sonogram. TECHNIQUE: Complete transabdominal and transvaginal pelvic ultrasound was performed. In addition, limited pelvic Doppler was performed. INDICATION: Lower abdominal pain. CT from earlier the same day demonstrates a questionable mass versus fluid collection in the lower uterine segment. The study is performed for further evaluation. Correlation is made with CT study earlier the same day. The uterus is anteverted measuring 7.7 x 4.6 x 5.5 cm. There is an area of marked parenchymal heterogeneity involving the uterus in the lower uterine segment measuring 4.1 x 2.1 x 2.8 cm. This appears to be in the anterior portion of lower uterine segment and does show some internal vascularity. A uterine mass cannot be excluded. This correlates to the abnormality noted on CT. This does partially obscure the endometrium which measures approximately 7 mm in thickness. Right ovary measures 2.3 x 2.0 x 1.6 cm and left ovary measures 2.6 x 1.9 x 1.8 cm. Both ovaries demonstrate blood flow. No free fluid is identified. IMPRESSION: Abnormal region of parenchymal heterogeneity with mixed solid and cystic components and internal vascularity in the lower uterine segment anteriorly, correlating with the CT abnormality. A uterine mass cannot be excluded. No other significant abnormality is seen. Dictated by: Dictated on workstation # [id number]
== END 2022-05-17 07:54 | disposition home or self-care (01) ==
LOC: EDUNIT# 02:25 → ER 02:27
DX: N85.9 Noninflammatory disorder of uterus, unspecified (principal); R91.1 Solitary pulmonary nodule; Z90.49 Acquired absence of other specified parts of digestive tract; Z98.84 Bariatric surgery status
CPT/HCPCS: 36415; 74177; 76830; 76856; 80053; 81000; 83690; 84703; 85025; 86141

== ENCOUNTER → 2022-05-30 | Outpatient (CLI) | payer OTHER ==
--- NOTE | 2022-05-30 18:10 | Diagnostic Imaging Report ---
EXAMINATION: 3D bilateral screening mammogram with CAD. The current study was also evaluated with a Computer Aided Detection (CAD) system. COMPARISON: This is the patient's baseline study. At this time there are no current complaints. FINDINGS: There are scattered fibroglandular densities in both breasts which could obscure a lesion. In the 7 o'clock position of the left breast at anterior depth there is a small roughly 1 cm oval asymmetry. The tomographic images suggest this has a benign appearance. Even so, I would recommend that a compression view of this area be obtained in the MLO and CC projections for further study. A true lateral view of the left breast should also be performed. Ultrasound would be recommended as well. The right breast is unremarkable. IMPRESSION: Additional mammographic views and ultrasound of the left breast are recommended for further study. ACR BI-RADS Category 0: Incomplete. (Needs additional imaging evaluation). Result letter will be mailed to the patient. Note: At least 10% of breast cancer is not imaged by mammography. Dictated by: Dictated on workstation # [id number]
== END ==
LOC: RAD 07:45
PROVIDERS: ATTEND Nurse Practitioner Family
DX: Z12.31 Encounter for screening mammogram for malignant neoplasm of breast (principal)
CPT/HCPCS: 77063; 77067

== ENCOUNTER 2022-06-05 05:32 | Outpatient (CLI) | payer OTHER ==
[~2022-06-05] VITALS: Ht 165.1 cm; Wt 108.9 kg
[2022-06-05] MEDS ORDERED: ACET-93 PO (14:55)
[2022-06-05] MEDS ORDERED: IBUP-1780 PO (14:55)
== END 2022-06-05 14:58 | disposition home or self-care (01) ==
LOC: PREOP 05:32
PROVIDERS: ATTEND Obstetrics & Gynecology
DX: Z01.818 Encounter for other preprocedural examination (principal)

== ENCOUNTER 2022-06-11 10:01 | Day surgery (SDC) | payer OTHER ==
[~2022-06-11] VITALS: Ht 180.3 cm; Wt 108.9 kg
[2022-06-11] VITALS (10 sets, daily range): BP systolic 101–145; BP diastolic 58–83
[~2022-06-11 10:01] MED LIST changes: +ACET-93 PO
[2022-06-11] MEDS ORDERED: BUPIVACAINE 0.25% 30 ML (SENSORCAINE) VIAL ONE (11:01)
[2022-06-11 11:02] LABS: BASOPHILS # (AUTO) 0.1 10^3/uL (0.0-0.1); BASOPHILS % (AUTO) 1 % (0-10); EOSINOPHILS # (AUTO) 0.1 10^3/uL (0.0-0.3); EOSINOPHILS % (AUTO) 1 % (0-10); HEMATOCRIT 37 % (35-52); HEMOGLOBIN 12.7 g/dL (11.5-16.0); LYMPHOCYTES % (AUTO) 28 % (12-44); MEAN CORPUSCULAR HEMOGLOBIN 31 pg (25-34); MEAN CORPUSCULAR HGB CONC 34 g/dL (32-36); MEAN CORPUSCULAR VOLUME 90 fL (80-99); MEAN PLATELET VOLUME 10.5 fL (9.0-12.2); MONOCYTES # (AUTO) 0.3 10^3/uL (0.0-1.0); MONOCYTES % (AUTO) 5 % (0-12); NEUTROPHILS # (AUTO) 4.6 10^3/uL (1.8-7.8); NEUTROPHILS % (AUTO) 66 % (42-75); PLATELET COUNT 343 10^3/uL (130-400); WHITE BLOOD COUNT 7.1 10^3/uL (4.3-11.0)
[2022-06-11] MEDS ORDERED: LACTATED RINGERS 1,000 ML IV PRN (11:30)
[2022-06-11] MEDS ORDERED: MIDAZOLAM 2 MG/2 ML (VERSED) VIAL ONE (11:40)
[2022-06-11] MEDS ORDERED: fentaNYL INJ 100 MCG/2 ML AMP ONE (11:40)
--- NOTE | 2022-06-11 12:03 | Progress Note-Pre Operative ---
Pre-Operative Progress Note Date of Available H&P: Jun 11, 2022 Date H&P Reviewed: Jun 11, 2022 Time H&P Reviewed: 11:40 History & Physical: H&P Reviewed, Patient Examed, No changes noted Pre-Operative Diagnosis: AUB, Intrauterine mass DEMETRIUS ELAINE DO Jun 11, 2022 12:03
--- NOTE | 2022-06-11 12:05 | Discharge Inst-Women's Service ---
Discharge Inst-Women's Serv Depart Medication/Instructions New, Converted or Re-Newed RX: Transmitted to Pharmacy Problems Reviewed?: Yes Consults/Follow Up Additional Follow Up: Yes Orders/Referrals Dr. Elaine in 2 weeks Activity Activity: Activity as Tolerated Driving Instructions: No Driving for 1 Week NO SMOKING: NO SMOKING Nothing Inside Vagina: No Douching, No [place], No Tampons Diet Discharge Diet: No Restrictions Symptoms to Report to : Bleeding Excessive, Pain Increased, Fever Over 101 Degrees F, Vaginal Bleeding Increase, Questions/Concerns For Any Problems or Questions: Contact Your Physician DEMETRIUS ELAINE DO Jun 11, 2022 12:05
[2022-06-11] MEDS ORDERED: ONDANSETRON 4 MG/2 ML (SDV) Z0FRAN IVP PRN ×2 (12:15→13:00)
[2022-06-11] MEDS ORDERED: D5 LR IV SOLUTION 1,000 ML IV SCH (12:15)
[2022-06-11] MEDS ORDERED: KETOROLAC 30 MG/ML VIAL IVP ONE (12:15)
[2022-06-11] MEDS ORDERED: proPOfol 200 MG/20 ML (DIPRIVAN) VIAL IV ONE (12:34)
[2022-06-11] MEDS ORDERED: SEVOFLURANE (ULTANE) 15 ML INHAL SOLN ONE (12:35)
[2022-06-11] MEDS ORDERED: ONDANSETRON 4 MG/2 ML (SDV) Z0FRAN ONE (12:35)
[2022-06-11] MEDS ORDERED: LIDOCAINE PF 2% 5 ML (XYLOCAINE) VIAL ONE (12:35)
[2022-06-11] MEDS ORDERED: KETOROLAC 30 MG/ML VIAL ONE (12:39)
--- NOTE | 2022-06-11 12:50 | Anesthesia-General Post-Op ---
General Patient Condition Mental Status/LOC: Same as Preop Cardiovascular: Satisfactory Nausea/Vomiting: Absent Respiratory: Satisfactory Pain: Controlled Complications: Absent Post Op Complications Complications None Follow Up Care/Instructions Patient Instructions None needed. Anesthesia/Patient Condition Patient Condition Patient is doing well, no complaints, stable vital signs, no apparent adverse anesthesia problems. No complications reported per nursing. ANGELICA MARIN CRNA Jun 11, 2022 12:50
[2022-06-11] MEDS ORDERED: fentaNYL INJ 100 MCG/2 ML AMP IVP ONE (13:00)
--- NOTE | 2022-06-11 15:25 | OPERATIVE REPORT ---
DATE OF SERVICE: 06/11/2022 PREOPERATIVE DIAGNOSES: 1. A 41-year-old female with abnormal uterine bleeding. 2. Intrauterine mass on ultrasound. POSTOPERATIVE DIAGNOSES: 1. A 41-year-old female with abnormal uterine bleeding. 2. Intrauterine mass on ultrasound. PROCEDURE: D and C, hysteroscopy. SURGEON: Demetrius Elaine DO ANESTHESIA: LMA. ESTIMATED BLOOD LOSS: Minimal. URINE OUTPUT: A 60 mL drained at the end of the procedure. FLUIDS: A 800 mL lactated Ringer's solution. FINDINGS: Grossly normal-appearing external female genitalia, grossly normal appearing intrauterine cavity with a copious amount of fluffy endometrial tissue. SPECIMEN SENT: Endometrial curettings. INDICATIONS FOR PROCEDURE: This 41-year-old female is a patient who sought care in my office after having change in bleeding pattern. We discussed D and C for endometrial sampling especially since there was questionable intrauterine mass on ultrasound. I also discussed hysteroscopy with the patient. Risk of both of these were discussed with the patient in detail. After all of her questions were answered, consent was obtained, the patient was taken to the operating room. OPERATIVE REPORT IN DETAIL: Once in the operating room, anesthesia was found to be adequate, placed in dorsal lithotomy position, prepped and draped in normal sterile fashion. Timeout was performed. Weighted speculum was inserted to the patient's vagina. Right angle retractor was used to visualize the cervix, which was grasped at 12 o'clock position using a single tooth tenaculum. I then performed paracervical block at 3 and 9 o'clock positions on the cervix. Care was taken to aspirate for injecting 5 mL of 0.25% Marcaine injected into each site. I then gently sound the uterine cavity, depth was found to be 8 cm. I then gently dilated the cervix using Hanks dilators to maximum dilatation of approximately 8 mm, at which point I advanced the hysteroscope into the intrauterine cavity. There is no evidence of a large intrauterine mass, grossly apparent. There is a fluffy amount of endometrial tissue noted. Bilateral tubal ostia are noted, at which point I removed the hysteroscope and performed a gentle curettage using a medium size endometrial curette and this tissue was collected and sent as endometrial curettings, after which I removed all the instruments from the patient's vagina. The patient tolerated the procedure well and sent to recovery area in stable condition. Lap and sponge counts were correct at the end of the procedure. Instrument counts correct as well. Job ID: [id number] DocumentID: [id number] Dictated Date: 06/11/2022 12:48:14 Horologist Apprentice Date: 06/11/2022 15:25:37 Dictated By: DEMETRIUS ELAINE DO
== END 2022-06-11 14:40 | disposition home or self-care (01) ==
LOC: SDC 10:01
PROVIDERS: ATTEND Obstetrics & Gynecology
DX: N71.9 Inflammatory disease of uterus, unspecified (principal); N93.9 Abnormal uterine and vaginal bleeding, unspecified; E66.01 Morbid (severe) obesity due to excess calories; Z68.41 Body mass index [BMI] 40.0-44.9, adult
CPT/HCPCS: 36415; 84703; 85025; 86850; 86900; 86901; 87081

== ENCOUNTER → 2022-06-14 | Outpatient (CLI) | payer OTHER ==
--- NOTE | 2022-06-14 09:33 | Diagnostic Imaging Report ---
INDICATION: Left breast density. Patient presents for additional views. COMPARISON is made with screening study from 05/30/2022. Unilateral left 2-D and 3-D diagnostic mammography was performed with CAD. This included spot compression CC and ML views as well as conventional 90 degree lateral views. Additional views show some persistent slightly nodular density in the lower inner left breast approximately 4 cm from the nipple. Further evaluation of this area with ultrasound is recommended. No other suspicious masses are seen. IMPRESSION: BI-RADS 0 Persistent left breast density. Further evaluation with ultrasound is recommended and will be performed today. ACR BI-RADS Category 0: Incomplete. (Needs additional imaging evaluation). Result letter will be mailed to the patient. Note: At least 10% of breast cancer is not imaged by mammography. Dictated by: Dictated on workstation # [id number]
--- NOTE | 2022-06-14 10:25 | Diagnostic Imaging Report ---
Indication: Left breast density. Correlation is made with screening mammogram from 05/30/2022 and diagnostic mammogram from 06/14/2022. Sonographic interrogation of the left breast was performed. There is a somewhat ill-defined area of hypoechogenicity at the 7:00 location left breast, 2 cm from the nipple measuring 1.1 x 0.4 x 1.1 cm. This may account for the mammographic density. It is uncertain if this represents a true lesion versus fibroglandular tissue. No other sonographic abnormalities are seen. IMPRESSION: BI-RADS Category 4 Slightly irregular hypoechogenicity at the 7:00 location left breast, 2 cm from the nipple. This may account for the mammographic density. Tissue sampling is recommended. This would be amenable to ultrasound-guided core biopsy. ACR BI-RADS Category 4: Suspicious abnormality. Result letter will be mailed to the patient. Note: At least 10% of breast cancer is not imaged by mammography. Dictated by: Dictated on workstation # [id number]
== END ==
LOC: RAD 09:15
PROVIDERS: ATTEND Nurse Practitioner Family
DX: R92.2 Inconclusive mammogram (principal)
CPT/HCPCS: 76642; 77065; G0279

== ENCOUNTER → 2022-06-22 | Outpatient (CLI) | payer OTHER ==
[~2022-06-22] VITALS: Ht 165.1 cm; Wt 108.2 kg
[~2022-06-22] MED LIST changes: +LIDOCAINE 1% INJ 10 ML VIAL INJ ONE
--- NOTE | 2022-06-22 13:47 | Diagnostic Imaging Report ---
INDICATION: Left breast mass. PROCEDURE: The patient presents for ultrasound-guided biopsy. The patient was brought to the ultrasound suite, placed on the table in the supine position. Ultrasound imaging of the left breast was performed to evaluate appropriate entry site. Left breast was then prepped and draped in the usual sterile fashion. A small amount of 1% lidocaine was utilized for local anesthesia. A total of 3 passes were made into the irregular hypoechoic nodule at the 7:00 location left breast utilizing a 14-gauge Achieve needle. A marker clip was then deployed. Hemostasis was obtained using manual compression. Patient tolerated the procedure well and was sent for post procedure mammogram in satisfactory condition. IMPRESSION: Successful ultrasound-guided core biopsy of the nodule at the 7:00 location left breast. Pathology results are currently pending. Dictated by: Dictated on workstation # [id number]
--- NOTE | 2022-06-22 15:23 | Diagnostic Imaging Report ---
INDICATION: Left breast nodule, status post ultrasound-guided biopsy. Unilateral left 2-D CC and ML mammography was performed after patient underwent ultrasound guided left breast biopsy. There is a marker clip adjacent to the nodule in the medial and inferior aspect of the left breast, status post ultrasound-guided biopsy. IMPRESSION: Marker clip placement, as described. Dictated by: Dictated on workstation # [id number]
== END ==
LOC: RAD 11:02
PROVIDERS: ATTEND Nurse Practitioner Family
DX: N63.20 Unspecified lump in the left breast, unspecified quadrant (principal); Z98.82 Breast implant status
CPT/HCPCS: 19083; 77065; G0279

== ENCOUNTER 2022-08-13 05:29 | Outpatient (CLI) | payer OTHER ==
[~2022-08-13] VITALS: Ht 165.1 cm; Wt 109.5 kg
[~2022-08-13 05:29] MED LIST changes: -LIDOCAINE 1% INJ 10 ML VIAL INJ ONE
[2022-08-14] MEDS ORDERED: MULT-1136 PO (16:12)
== END 2022-08-14 16:21 | disposition home or self-care (01) ==
LOC: PREOP 05:29
PROVIDERS: ATTEND Obstetrics & Gynecology
DX: Z01.818 Encounter for other preprocedural examination (principal)

== ENCOUNTER 2022-08-20 05:56 | Day surgery (SDC) | payer OTHER ==
[~2022-08-20] VITALS: Ht 165.1 cm; Wt 109.5 kg
[2022-08-20] VITALS (11 sets, daily range): BP systolic 125–172; BP diastolic 70–107
[~2022-08-20 05:56] MED LIST changes: +MULT-1136 PO
[2022-08-20] MEDS ORDERED: metroNIDAZOLE 500MG/100ML IVPB 100 ML IV ONE (06:15)
[2022-08-20] MEDS ORDERED: LACTATED RINGERS 1,000 ML IV PRN (06:15)
[2022-08-20] MEDS ORDERED: ceFAZolin INJECTION 2,000 MG in NS (IVPB) 50 ML IV ONE (06:15)
[2022-08-20] MEDS: LACTATED RINGERS 1,000 ML IV PRN ×3 (06:39→12:55)
[2022-08-20 06:40] LABS: BASOPHILS # (AUTO) 0.1 10^3/uL (0.0-0.1); BASOPHILS % (AUTO) 1 % (0-10); EOSINOPHILS # (AUTO) 0.1 10^3/uL (0.0-0.3); EOSINOPHILS % (AUTO) 1 % (0-10); HEMATOCRIT 40 % (35-52); LYMPHOCYTES # (AUTO) 2.5 10^3/uL (1.0-4.0); LYMPHOCYTES % (AUTO) 23 % (12-44); MEAN CORPUSCULAR HEMOGLOBIN 31 pg (25-34); MEAN CORPUSCULAR HGB CONC 35 g/dL (32-36); MEAN CORPUSCULAR VOLUME 88 fL (80-99); MEAN PLATELET VOLUME 10.4 fL (9.0-12.2); MONOCYTES # (AUTO) 0.5 10^3/uL (0.0-1.0); MONOCYTES % (AUTO) 4 % (0-12); NEUTROPHILS # (AUTO) 7.4 10^3/uL (1.8-7.8); NEUTROPHILS % (AUTO) 71 % (42-75); PLATELET COUNT 387 10^3/uL (130-400); WHITE BLOOD COUNT 10.5 10^3/uL (4.3-11.0)
[2022-08-20] MEDS ORDERED: BUPIVACAINE 0.25% 30 ML (SENSORCAINE) VIAL ONE (06:57)
[2022-08-20] MEDS ORDERED: proPOfol 200 MG/20 ML (DIPRIVAN) VIAL IV ONE (07:03)
[2022-08-20] MEDS ORDERED: fentaNYL INJ 100 MCG/2 ML AMP ONE (07:03)
[2022-08-20] MEDS ORDERED: GLYCOPYRROLATE 0.2 MG/ML (ROBINUL) 2 ML VIAL ONE ×2 (07:03→08:55)
[2022-08-20] MEDS ORDERED: MIDAZOLAM 2 MG/2 ML (VERSED) VIAL ONE (07:03)
[2022-08-20] MEDS ORDERED: ROCURONIUM 10 MG/ML 5 ML SYRINGE IV ONE ×2 (07:03→08:26)
[2022-08-20] MEDS ORDERED: ONDANSETRON 4 MG/2 ML (SDV) Z0FRAN ONE (07:03)
[2022-08-20] MEDS ORDERED: LIDOCAINE PF 2% 5 ML (XYLOCAINE) VIAL ONE (07:03)
[2022-08-20] MEDS ORDERED: NEOSTIGMINE (BLOXIVERZ ) 1 MG/1ML 10 ML VIAL ONE (07:04)
--- NOTE | 2022-08-20 07:24 | History & Physical-Surgical ---
HPO-Surgical History of Present Illness Chief Complaint: AUB Diagnosis/Surgical Indication: AUB, FIBROID UTERUS Procedure: ROBOTIC ASSISTED TOTAL LAPAROSCOPIC HYSTERECTOMY WITH POSSIBLE BILATERAL SALPINGO OOPHORECTOMY Date of Surgery: Aug 20, 2022 Allergies and Home Medications Allergies Coded Allergies: citalopram (Verified Allergy, Unknown, hypersensitivity, 08/14/22) sumatriptan (Verified Allergy, Unknown, lock jaw, 08/14/22) locked jaw Patient Home Medication List Home Medication List Reviewed: Yes Acetaminophen (Acetaminophen) 500 Mg Tablet, 500 MG PO DAILY, (Reported) Entered as Reported by: TRICIA RUBY on 06/05/22 1455 Atenolol (Atenolol) 50 Mg Tablet, 50 MG PO DAILY, (Reported) Entered as Reported by: VALERIE WOLF on 02/10/20 1147 Bupropion HCl (Bupropion Xl) 300 Mg Tab.er.24h, 300 MG PO DAILY, (Reported) Entered as Reported by: VALERIE WOLF on 02/10/20 1147 Fluoxetine HCl (Prozac) 20 Mg Capsule, 20 MG PO BID, (Reported) Entered as Reported by: VALERIE WOLF on 02/10/20 1147 Ibuprofen (Ibuprofen) 800 Mg Tablet, 1,200 MG PO PRN, (Reported) Entered as Reported by: TRICIA RUBY on 06/05/22 1455 Multivitamin (Multivitamin) 1 Each Tablet, 1 EACH PO DAILY, (Reported) Entered as Reported by: ANTONIO MOSES on 08/14/22 1612 Past Santcsb-Xcrtwk-Rdkeld Hx Patient Social History 2nd Hand Smoke Exposure: No Recent Hopitalizations: No Immunizations Up To Date Tetanus Booster (TDap): Unknown Date of Pneumonia Vaccine: February 10, 2008 Date of Influenza Vaccine: Jun 14, 2022 Seasonal Allergies Seasonal Allergies: Yes Surgeries Yes (CS X2, BACK X2, EAR SURGERY, D&C/ABLATION X2) Section, Gallbladder, Tubal Ligation Respiratory No Currently Using CPAP: No Currently Using BIPAP: No Cardiovascular Yes Hypertension Neurological Yes Headaches /Migraines Reproductive System Sexually Transmitted Disease: No HIV/AIDS: No Female Reproductive Disorders: Endometriosis 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 Genitourinary No Gastrointestinal No Musculoskeletal No Endocrine History of Endocrine Disorders: Yes Endocrine Disorders: Diabetes, Non-Insulin dep HEENT History of HEENT Disorders: Yes (GLASSES) Loss of Vision: Denies Hearing Impairment: Denies Cancer No Psychosocial History of Psychiatric Problem: Yes Behavioral Health Disorders: Anxiety, Depression Integumentary History of Skin or Integumenta: No Blood Transfusions History of Blood Disorders: No Adverse Reaction to a Blood Tr: No (N/A) Exam Vital Signs Vital Signs 08/20/22 06:49 Temp 36.4 Pulse 86 Resp 20 B/P (MAP) 125/70 (88) Pulse Ox 98 O2 Delivery Room Air Capillary Refill : Labs Laboratory Tests Test 08/20/22 06:00 Range/Units White Blood Count 10.5 4.3-11.0 10^3/uL Red Blood Count 4.58 3.80-5.11 10^6/uL Hemoglobin 14.0 11.5-16.0 g/dL Hematocrit 40 35-52 % Mean Corpuscular Volume 88 80-99 fL Mean Corpuscular Hemoglobin 31 25-34 pg Mean Corpuscular Hemoglobin Concent 35 32-36 g/dL Red Cell Distribution Width 11.9 10.0-14.5 % Platelet Count 387 130-400 10^3/uL Mean Platelet Volume 10.4 9.0-12.2 fL Immature Granulocyte % (Auto) 0 % Neutrophils (%) (Auto) 71 42-75 % Lymphocytes (%) (Auto) 23 12-44 % Monocytes (%) (Auto) 4 0-12 % Eosinophils (%) (Auto) 1 0-10 % Basophils (%) (Auto) 1 0-10 % Neutrophils # (Auto) 7.4 1.8-7.8 10^3/uL Lymphocytes # (Auto) 2.5 1.0-4.0 10^3/uL Monocytes # (Auto) 0.5 0.0-1.0 10^3/uL Eosinophils # (Auto) 0.1 0.0-0.3 10^3/uL Basophils # (Auto) 0.1 0.0-0.1 10^3/uL Immature Granulocyte # (Auto) 0.0 0.0-0.1 10^3/uL General Appearance: Alert, Oriented X3 HEENT: Atraumatic Respiratory: Clear to Auscultation Cardiovascular: Regular Rate Abdominal: Normal Bowel Sounds Extremities: No Clubbing Skin: No Rashes Neuro: Normal Gait Psych/Mental Status: Mental Status NL Assessment/Plan Assessment and Plan Diagnosis: AUB Fibroid Uterus P: RATLH w poss BSO Admission Diagnosis Admission Status: Observation DEMETRIUS ELAINE DO Aug 20, 2022 07:24
[2022-08-20] MEDS ORDERED: DOCUSATE SODIUM 100 MG (COLACE) CAP PO PRN (07:30)
[2022-08-20] MEDS ORDERED: HYDROmorphone 2 MG/ML VIAL (DILAUDID) IV ONE (07:30)
[2022-08-20] MEDS ORDERED: ANTACID SUSP 30 ML UDC (MYLANTA) PO PRN (07:30)
[2022-08-20] MEDS ORDERED: BENZOCAINE LOZENGES 1 EACH LOZENGE MM PRN (07:30)
[2022-08-20] MEDS ORDERED: morphine INJ 10 MG/ML 1ML (SYR OR VIAL) IVP ONE (07:30)
[2022-08-20] MEDS ORDERED: ONDANSETRON 4 MG/2 ML (SDV) Z0FRAN IV PRN (07:30)
[2022-08-20] MEDS ORDERED: ZOLPIDEM 5 MG (AMBIEN) TAB PO PRN (07:30)
[2022-08-20] MEDS ORDERED: ONDANSETRON 4 MG/2 ML (SDV) Z0FRAN IVP PRN (07:30)
[2022-08-20] MEDS ORDERED: PROMETHAZINE INJ 25 MG/ML (PHENERGAN) AMP IVP ONE (07:30)
[2022-08-20] MEDS ORDERED: SIMETHICONE 80 MG (MYLICON) CHEW PO PRN (07:30)
[2022-08-20] MEDS ORDERED: HYDROcodone/APAP 7.5 MG/325 MG (LORTAB, LORCET PLUS) TABLET PO PRN (07:30)
--- NOTE | 2022-08-20 07:30 | Discharge Inst-Women's Service ---
Discharge Inst-Women's Serv Depart Medication/Instructions New, Converted or Re-Newed RX: Transmitted to Pharmacy Problems Reviewed?: Yes Consults/Follow Up Additional Follow Up: Yes Orders/Referrals Dr. Rosario onofre n7-10 days and in 8 weeks Activity Activity: Activity as Tolerated Driving Instructions: No Driving for 1 Week NO SMOKING: NO SMOKING Nothing Inside Vagina: No Douching, No Bear [place], No Tampons Diet Discharge Diet: No Restrictions Symptoms to Report to : Bleeding Excessive, Pain Increased, Fever Over 101 Degrees F, Vaginal Bleeding Increase, Questions/Concerns For Any Problems or Questions: Contact Your Physician Skin/Wound Care Infection Signs and Symptoms: Increased Redness, Foul Odor of Wound, Increased Drainage, Skin Itchy or Has a Rash, Increased Swelling, Temperature Above 101 F Operative Area Clean and Dry: Keep Incision Clean/Dry Stitches/Lori/Dermabond: Dermabond, Care of Stitches Bathing Instructions: DEMETRIUS Castellanos DO Aug 20, 2022 07:30
[2022-08-20] MEDS ORDERED: SIME80TA16 PO (07:31)
[2022-08-20] MEDS ORDERED: DOCU100C37 PO (07:31)
[2022-08-20] MEDS ORDERED: HYDR-34 PO (07:31)
[2022-08-20] MEDS ORDERED: IBUP-844 PO (07:31)
[2022-08-20] MEDS ORDERED: PHENYLEPHRINE 100 MCG/ML 10 ML (ANESTHESIA) SYR ONE (07:44)
[2022-08-20] MEDS ORDERED: ESMOLOL 100 MG/10 ML (BREVIBLOC) VIAL ONE (08:02)
[2022-08-20] MEDS ORDERED: BUPIVACAINE 0.25% 30 ML (SENSORCAINE) VIAL INJ ONE (08:14)
[2022-08-20] MEDS ORDERED: HYDROmorphone 2 MG/ML VIAL (DILAUDID) ONE (08:27)
[2022-08-20] MEDS ORDERED: SEVOFLURANE (ULTANE) 15 ML INHAL SOLN ONE (09:00)
[2022-08-20] MEDS ORDERED: KETOROLAC 30 MG/ML VIAL ONE (09:08)
[2022-08-20] MEDS: KETOROLAC 30 MG/ML VIAL IVP PRN ×3 (09:20→22:07)
[2022-08-20] MEDS ORDERED: ACHD5005 PO (10:09)
--- NOTE | 2022-08-20 10:22 | Anesthesia-General Post-Op ---
General Patient Condition Mental Status/LOC: Same as Preop Cardiovascular: Satisfactory Nausea/Vomiting: Absent Respiratory: Satisfactory Pain: Controlled Complications: Absent Post Op Complications Complications None Follow Up Care/Instructions Patient Instructions None needed. Anesthesia/Patient Condition Patient Condition Patient was doing well in PACU. She did C/O some pain, which is to be expected and improved with Dilaudid. She also had some nausea, which improved with Phenergan. She had stable vital signs, no apparent adverse anesthesia problems. No complications reported per nursing. MICHELLE PLATT DO Aug 20, 2022 10:22
[2022-08-20] MEDS: LACTATED RINGERS 1,000 ML IV SCH ×2 (12:55→22:07)
--- NOTE | 2022-08-20 14:11 | OPERATIVE REPORT ---
DATE OF SERVICE: 08/20/2022 PREOPERATIVE DIAGNOSES: 1. A 42-year-old female with abnormal uterine bleeding. 2. Fibroid uterus. POSTOPERATIVE DIAGNOSES: 1. A 42-year-old female with abnormal uterine bleeding. 2. Fibroid uterus. PROCEDURES PERFORMED: Robotic-assisted total laparoscopic hysterectomy with bilateral salpingectomy. SURGEON: Kamari Elaine DO DATA SUPPORT ANALYST: Diana Dumont DNP, who was necessary for manipulation, and retraction throughout the procedure. ANESTHESIA: General endotracheal. ESTIMATED BLOOD LOSS: Minimal. URINE OUTPUT: 400 mL clear at the end of the procedure. FLUIDS: 1500 mL lactated Ringer's solution. FINDINGS: A slightly bulky and hyperemic-appearing uterus with evidence of prior tubal ligation, grossly normal-appearing fallopian tubes, otherwise grossly normal-appearing bilateral ovaries. SPECIMEN SENT: Uterus, cervix, and bilateral fallopian tubes. INDICATIONS FOR PROCEDURE: This 42-year-old female is a patient, who had sought care in my office for ongoing issues with abnormal uterine bleeding that was heavy and painful. This has been going on for several years. She has tried more conservative measures without any relief in her symptoms. She underwent D and C for endometrial sampling due to her age and her body habitus. This was negative for malignancy, after which the patient wished to proceed with more definitive measures as the D and C did not improve her symptoms. The risks of the procedure were discussed with the patient in detail in the preoperative consultation including risk of bleeding, infection, and damage to structures including, but not limited to bowel, bladder, ureter or kidney, possible need for reoperation, postoperative complications that may occur, recovery time frame, risk from anesthesia and even . After everything was discussed with the patient in detail, consent was obtained and the patient was taken to the operating room. DESCRIPTION OF PROCEDURE: Once in the operating room, general anesthesia was administered and found to be adequate. She was placed in the dorsal lithotomy position, prepped and draped in a normal sterile fashion. A Newsome catheter was placed. A weighted speculum was inserted in the patient's vagina. A right angle retractor was used to visualize the cervix. A 0 Vicryl suture was then placed in the anterior lip of the cervix and used as retraction on the cervix. I then gently sounded the uterine cavity, depth was found to be 8 cm. I selected an 8 cm NAHUN uterine manipulator tip and a 3.5 cm colpotomy ring. The manipulator tip was advanced into the uterus. With the balloons deployed, the colpotomy ring was advanced around the vaginal fornix, after which, there was excellent manipulation appreciated on bimanual exam at that point. I then removed all the other instruments from the patient's vagina, performed change of gloves, took my attention to the abdomen, where at the midclavicular line on the left subcostally one fingerbreadth, I introduced the Veress needle through the skin until intraperitoneal placement was confirmed using saline drop test and an opening pressure of 8 mmHg was noted. I proceeded to max pressure using CO2 gas of 15 mmHg, at which point, I made an 8 mm supraumbilical incision with a knife and direct a blunt laparoscopic da Renzo camera trocar through this incision until intraperitoneal placement was confirmed using the da Renzo laparoscope. There was no evidence of damage from my entry site. A brief scan of the upper abdominal anatomy appears to be grossly normal and the Veress needle appears to have been entered without surrounding damage. The Veress was then removed at that point. I then the patient placed in steep Trendelenburg. We were able to visualize all my pelvic anatomy as described in my findings above. I placed two lateral trocars. These were approximately 8 to 10 cm lateral to my supraumbilical trocar. Once both these trocars were in place, I brought in the da Renzo robot, docked in the appropriate fashion, placed in the SynchroSeal device in the left hand and monopolar miguel in the right hand. I took my place at the operative console and performed the following dissection bilaterally starting at the uteroovarian ligament, I sealed and transected tissue using a SynchroSeal device. I then created a window in the mesosalpinx and took this laterally down the mesosalpinx amputating the fallopian tube from the surrounding blood supply using the SynchroSeal device. I then grasped the round ligament, which I sealed and transected using the SynchroSeal device. I then grasped the entire broad ligament, which I sealed and transected using SynchroSeal down to the level of the lower uterine segment, at which point, I the anterior and posterior leaflets of the broad ligament. The anterior leaflet was taken around to the anterior vaginal fornix. The posterior leaflet dissection was taken around the posterior vaginal fornix. This allowed me to skeletonize the uterine vessels laterally, which I sealed and transected using the SynchroSeal device. I then created a colpotomy at the 12 o'clock position using monopolar miguel and took this circumferentially around the vaginal fornix amputating the vagina from the cervix. The cervix, uterus, and bilateral fallopian tubes were then removed through the vagina. There was no active bleeding noted from any of my dissection planes. I then proceeded with closing the vaginal cuff using 2-0 V-Loc in a running fashion, after which, there was no active bleeding noted from any of my dissection planes. I then undocked the da Renzo robot and proceeded with the remainder of the case laparoscopically. I copiously irrigated the pelvis using normal saline. Once again, there was no active bleeding noted from any of dissection planes. I placed Surgiflo hemostatic agent over all my planes of dissection. Having the patient taken out of steep Trendelenburg, we removed the lateral trocars under direct visualization of the laparoscope. The supraumbilical trocar was left in place to release the remainder of the insufflation and to introduce 10 mL of 0.25% Marcaine in the peritoneal cavity for postoperative pain management. I then removed this trocar as well. The skin was reapproximated using 4-0 Monocryl interrupted subcuticular stitches. Dermabond was placed and Band-Aids were placed over the incisions as well. Newsome catheter was left in place. The patient tolerated the procedure well and was taken to the recovery area in a stable condition. Lap and sponge counts were correct at the end of the procedure. Instruments were correct as well. Job ID: [id number] DocumentID: [id number] Dictated Date: 08/20/2022 09:23:59 Track Greaser Date: 08/20/2022 14:09:00 Dictated By: KAMARI ELAINE DO
[2022-08-21 03:17] VITALS: BP 138/69
[2022-08-21] MEDS: KETOROLAC 30 MG/ML VIAL IVP PRN (03:17)
[2022-08-21 08:00] VITALS: BP 116/57
[2022-08-21] MEDS ORDERED: IBUPROFEN 600 MG (MOTRIN) TAB PO ONE (09:19)
[2022-08-25] MEDS ORDERED: IBUPROFEN 600 MG (MOTRIN) TAB PO SCH (12:00)
== END 2022-08-21 14:20 ==
LOC: SDC 05:56 → WS 10:10 → SDC 08-21 14:20
PROVIDERS: ATTEND Obstetrics & Gynecology
DX: D25.1 Intramural leiomyoma of uterus (principal)
CPT/HCPCS: 36415; 84703; 85025; 86850; 86900; 86901; 87081

== ENCOUNTER → 2022-12-06 | Outpatient (CLI) | payer OTHER ==
[~2022-12-06] MED LIST changes: +ACHD5005 PO; +DOCU100C37 PO; +HYDR-34 PO; +IBUP-844 PO; +SIME80TA16 PO
--- NOTE | 2022-12-06 17:24 | Diagnostic Imaging Report ---
PROCEDURE: US Non-OB pelvis comp/trans. TECHNIQUE: Multiple realtime grayscale images were obtained of the pelvis in various projections, endovaginally. Transabdominal imaging was also performed. INDICATION: Pelvic pain. COMPARISON: Pelvic ultrasound of 05/17/2022. FINDINGS: Hysterectomy with no mass or fluid collection at the surgical bed. Right ovary is not seen due to surrounding bowel gas. The left ovary is likely along the lateral margin of the vaginal cuff and measures 1.6 x 0.7 x 1.8 cm. IMPRESSION: 1. Hysterectomy without concerning abnormality. 2. Soft tissue nodule along the left lateral aspect of the vaginal cuff is most likely the ovary. Dictated by: Dictated on workstation # [id number]
== END ==
LOC: RAD 13:40 → MERGE 14:00
PROVIDERS: ATTEND Obstetrics & Gynecology
DX: N89.8 Other specified noninflammatory disorders of vagina (principal); Z90.710 Acquired absence of both cervix and uterus
CPT/HCPCS: 76830; 76856

== ENCOUNTER → 2022-12-06 | Outpatient (CLI) | payer OTHER ==
--- NOTE | 2022-12-06 17:38 | Diagnostic Imaging Report ---
EXAMINATION: Abdomen 1 view HISTORY: Abdominal pain COMPARISON: None available. FINDINGS: No dilated bowel. No free air. Upper abdomen is excluded from the [id number]. There are cholecystectomy clips. IMPRESSION: 1. Normal bowel gas pattern. Dictated by: Dictated on workstation # [id number]
== END ==
LOC: RAD 13:42
PROVIDERS: ATTEND Nurse Practitioner Family
DX: K59.00 Constipation, unspecified (principal); R10.9 Unspecified abdominal pain
CPT/HCPCS: 74018